=== PATIENT | female | born 1970 | race Caucasian/White ===

== ENCOUNTER 2016-11-11 14:37 | Emergency (ER) | payer BC ==
[2016-11-11 14:48] VITALS: BP 128/63
--- NOTE | 2016-11-11 15:15 | UC ---
Throat Pain/Nasal Isauro HPI - HPI Summary HPI Summary: 46 yo female with cough/nasal d/c, postnasal drip x 1 month now with dizziness no f/c - History of Current Complaint Chief Complaint: UCGeneralIllness Stated Complaint: DIZZY/LIGHT HEADED Time Seen by Provider: 11/11/16 15:04 Hx Obtained From: Patient Hx Last Menstrual Period: 10/14/16 Onset/Duration: Gradual Onset Severity: Mild Pain Intensity: 4 Pain Scale Used: 0-10 Numeric Associated Signs & Symptoms: Positive: Hoarseness, Sinus Discomfort, Nasal Discharge - Allergies/Home Medications Allergies/Adverse Reactions: Allergies Allergy/AdvReac Type Severity Reaction Status Date / Time No Known Allergies Allergy Verified 11/11/16 14:48 Home Medications: Home Medications Phenylephrine-Chlorpheniramine [[place] Plus Cold & 5-2-10-325 mg] 1 cap PO DAILY 11/11/16 [History Confirmed 11/11/16] PMH/Surg Hx/FS Hx/Imm Hx Previously Healthy: Yes Endocrine History Of: Denies: Diabetes, Thyroid Disease Cardiovascular History Of: Denies: Cardiac Disorders, Hypertension Respiratory History Of: Denies: COPD, Asthma GI/ History Of: Denies: Ulcer Psychological History Of: Reports: Anxiety - HX OF IN THE PAST, Depression - HX OF IN THE PAST Cancer History Of: Denies: Breast Cancer - Surgical History Surgical History: Yes Surgery Procedure, Year, and Place: tympanoplasty LEFT. hip replacement left- 2009. LEFT KNEE [id number] 2- PLATES AND SCREWS - Family History Known Family History: Positive: Cardiac Disease, Hypertension Negative: Diabetes - Social History Alcohol Use: None Substance Use Type: None Substance Use Comment - Amount & Last Used: HX OF USE 6 YEARS AGO Smoking Status (MU): Current Every Day Smoker Type: Cigarettes Amount Used/How Often: 1/2ppd X 30 YEARS Have You Smoked in the Last Year: Yes Household Exposure Type: Cigarettes - Immunization History Most Recent Influenza Vaccination: 02014 Review of Systems Constitutional: Negative Skin: Negative Eyes: Negative ENT: Nasal Discharge Respiratory: Cough Cardiovascular: Negative Gastrointestinal: Negative Genitourinary: Negative Motor: Negative Neurovascular: Negative Musculoskeletal: Negative Neurological: Negative Psychological: Negative All Other Systems Reviewed And Are Negative: Yes Physical Exam Triage Information Reviewed: Yes Appearance: Well-Appearing, No Pain Distress, Well-Nourished Vital Signs: Initial Vital Signs Temp 99.5 F 11/11/16 14:46 Pulse 92 11/11/16 14:46 Resp 16 11/11/16 14:46 BP 128/63 11/11/16 14:46 Pulse Ox 99 11/11/16 14:46 Eyes: Positive: Conjunctiva Clear ENT: Positive: Hearing grossly normal, Pharynx normal, Nasal congestion, Nasal drainage, TMs normal, Other: - bilateral max sinus tenderness. Negative: Pharyngeal erythema, Tonsillar swelling, Tonsillar exudate Neck: Positive: Supple, Nontender, No Lymphadenopathy Respiratory: Positive: Lungs clear, Normal breath sounds, No respiratory distress Cardiovascular: Positive: RRR, No Murmur Musculoskeletal: Positive: ROM Intact Neurological: Positive: Alert, Muscle Tone Normal. Negative: Fatigued Psychological Exam: Normal Skin Exam: Normal Throat Pain/Nasal Course/Dx - Differential Dx/Diagnosis Provider Diagnoses: acute sinusitis. dizziness Discharge - Discharge Plan Condition: Stable Disposition: HOME Prescriptions: Cefuroxime Axetil [Ceftin 250 MG] 250 mg PO BID #20 tab Patient Education Materials: Sinusitis (ED) Forms: *Work Release Referrals: Radha Burns MD [Primary Care Provider] - 1 Week (if not better) Additional Instructions: warm facial compresses saline nasal spray twice daily rest
== END 2016-11-11 15:16 | disposition home or self-care (01) ==
LOC: UCCORT 14:37
DX: J01.90 Acute sinusitis, unspecified (principal); R42 Dizziness and giddiness; Z96.642 Presence of left artificial hip joint; F17.210 Nicotine dependence, cigarettes, uncomplicated
CPT/HCPCS: 99212; G0463

== ENCOUNTER 2016-12-08 14:54 | Emergency (ER) | payer BC ==
[2016-12-08 15:33] VITALS: BP 112/65
--- NOTE | 2016-12-08 16:42 | UC ---
Ear Complaint HPI - HPI Summary HPI Summary: 46 yo female with left otalgia and otorrhea x days using ciprodex hx chronic left TM perf now with swollen glands - History of Current Complaint Chief Complaint: UCEar Stated Complaint: LEFT EAR PAIN Hx Obtained From: Patient Hx Last Menstrual Period: 11/11/16 Onset/Duration: Gradual Onset, Lasting Hours Severity Initially: Mild Severity Currently: Moderate Pain Intensity: 3 Pain Scale Used: 0-10 Numeric Aggravating Factors: Nothing Alleviating Factors: Nothing Associated Signs/Symptoms: Positive: Discharge, Hearing Loss, Swelling @ - glands Related History: Prior ENT Surgery - Allergies/Home Medications Allergies/Adverse Reactions: Allergies Allergy/AdvReac Type Severity Reaction Status Date / Time No Known Allergies Allergy Verified 11/11/16 14:48 PMH/Surg Hx/FS Hx/Imm Hx Previously Healthy: Yes Endocrine History Of: Denies: Diabetes, Thyroid Disease Cardiovascular History Of: Denies: Cardiac Disorders, Hypertension Respiratory History Of: Denies: COPD, Asthma GI/ History Of: Denies: Ulcer Psychological History Of: Reports: Anxiety - HX OF IN THE PAST, Depression - HX OF IN THE PAST Cancer History Of: Denies: Breast Cancer - Surgical History Surgical History: Yes Surgery Procedure, Year, and Place: tympanoplasty LEFT. hip replacement left- 2009. LEFT KNEE [id number] 2- PLATES AND SCREWS - Family History Known Family History: Positive: Cardiac Disease, Hypertension Negative: Diabetes - Social History Alcohol Use: None Substance Use Type: None Substance Use Comment - Amount & Last Used: HX OF USE 6 YEARS AGO Smoking Status (MU): Current Every Day Smoker Type: Cigarettes Amount Used/How Often: 1/2ppd X 30 YEARS Have You Smoked in the Last Year: Yes Household Exposure Type: Cigarettes - Immunization History Most Recent Influenza Vaccination: 02014 Review of Systems Constitutional: Negative Skin: Negative Eyes: Negative ENT: Ear Ache Respiratory: Negative Cardiovascular: Negative Gastrointestinal: Negative Genitourinary: Negative Motor: Negative Neurovascular: Negative Musculoskeletal: Negative Neurological: Negative Psychological: Negative All Other Systems Reviewed And Are Negative: Yes Physical Exam Triage Information Reviewed: Yes Appearance: Well-Appearing, No Pain Distress, Well-Nourished Vital Signs: Initial Vital Signs Temp 98.7 F 12/08/16 15:27 Pulse 81 12/08/16 15:27 Resp 16 12/08/16 15:27 BP 112/65 12/08/16 15:27 Pulse Ox 98 12/08/16 15:27 Vital Signs Reviewed: Yes Eyes: Positive: Conjunctiva Clear ENT: Negative: Normal ENT inspection, Hearing grossly normal, Nasal congestion, Nasal drainage, TMs normal - left tm red/purulent material in left EAC, left tragal tenderness, left post auricular and ant cerival nodes, Tonsillar swelling, Tonsillar exudate, Trismus, Muffled/hoarse voice Dental Exam: Normal Neck exam: Normal Respiratory: Positive: Chest non-tender, Lungs clear, Normal breath sounds Cardiovascular: Positive: RRR, No Murmur Bowel Sounds: Positive: Present Musculoskeletal: Positive: Strength Intact, ROM Intact, No Edema Neurological: Positive: Alert Psychological Exam: Normal Skin Exam: Normal Ear Complaint Course/Dx - Differential Dx/Diagnosis Provider Diagnoses: left otitis media. left otitis externa. chronic left TM perforation Discharge - Discharge Plan Condition: Stable Disposition: HOME Prescriptions: Amoxicillin/Clavulanate TAB* [Augmentin TAB 875*] 875 mg PO BID #14 tab Patient Education Materials: Otitis Externa (ED), Otitis Media (ED) Referrals: Radha Burns MD [Primary Care Provider] - Additional Instructions: recheck in 3-4 days if not better
== END 2016-12-08 16:36 | disposition home or self-care (01) ==
LOC: UCCORT 14:54
DX: H66.92 Otitis media, unspecified, left ear (principal); H72.92 Unspecified perforation of tympanic membrane, left ear; H60.92 Unspecified otitis externa, left ear; F41.8 Other specified anxiety disorders; Z96.642 Presence of left artificial hip joint; F17.210 Nicotine dependence, cigarettes, uncomplicated
CPT/HCPCS: 99212; G0463

== ENCOUNTER 2017-05-27 15:09 | Emergency (ER) | payer BC ==
[2017-05-27 15:18] VITALS: BP 150/87
--- NOTE | 2017-05-27 15:20 | UC ---
Dizzy HPI HPI Summary: 47 year old female presents with complains of dizziness and chest pain. - History Of Current Complaint Chief Complaint: UCDizziness Stated Complaint: DIZZINESS Time Seen by Provider: 05/27/17 15:19 Hx Obtained From: Patient Hx Last Menstrual Period: 11/11/16 Onset/Duration: Sudden Onset Severity Initially: Moderate Severity Currently: Moderate - Allergies/Home Medications Allergies/Adverse Reactions: Allergies Allergy/AdvReac Type Severity Reaction Status Date / Time No Known Allergies Allergy Verified 05/27/17 15:18 PMH/Surg Hx/FS Hx/Imm Hx - Surgical History Surgical History: Yes Surgery Procedure, Year, and Place: tympanoplasty LEFT. hip replacement left- 2009. LEFT KNEE [id number] 2- PLATES AND SCREWS - Family History Known Family History: Positive: Cardiac Disease, Hypertension Negative: Diabetes - Social History Alcohol Use: None Substance Use Type: None Substance Use Comment - Amount & Last Used: HX OF USE 6 YEARS AGO Smoking Status (MU): Current Every Day Smoker Type: Cigarettes Amount Used/How Often: 1/2ppd X 30 YEARS Have You Smoked in the Last Year: Yes Household Exposure Type: Cigarettes - Immunization History Most Recent Influenza Vaccination: 02014 Review of Systems Constitutional: Negative Skin: Negative Eyes: Negative ENT: Negative Respiratory: Negative Cardiovascular: Palpitations, Chest Pain Gastrointestinal: Negative Genitourinary: Negative Motor: Negative Neurovascular: Negative Musculoskeletal: Negative Neurological: Headache, Weakness Psychological: Negative All Other Systems Reviewed And Are Negative: Yes Physical Exam Triage Information Reviewed: Yes Vital Signs: Initial Vital Signs Temp 37.4 C 05/27/17 15:16 Pulse 104 05/27/17 15:16 Resp 18 05/27/17 15:16 BP 150/87 05/27/17 15:16 Pulse Ox 100 05/27/17 15:16 Eye Exam: Normal ENT Exam: Normal Dental Exam: Normal Neck exam: Normal Neck: Positive: 1 Respiratory Exam: Normal Cardiovascular Exam: Normal Abdominal Exam: Normal Musculoskeletal Exam: Normal Neurological Exam: Normal Psychological Exam: Normal Skin Exam: Normal Dizzy Course/Dx - Differential Dx/Diagnosis Provider Diagnoses: chest pain. dizziness Discharge - Discharge Plan Condition: Guarded Disposition: AGAINST MEDICAL ADVICE Patient Education Materials: Chest Pain (ED), Dizziness (ED) Referrals: Radha Burns MD [Primary Care Provider] -
== END 2017-05-27 15:31 | disposition left against medical advice (07) ==
LOC: UCCORT 15:09
DX: R42 Dizziness and giddiness (principal); F17.210 Nicotine dependence, cigarettes, uncomplicated; R07.9 Chest pain, unspecified
CPT/HCPCS: 93005; 99212; G0463

== ENCOUNTER 2018-05-19 11:08 | Emergency (ER) | payer BC ==
[2018-05-19 11:48] VITALS: BP 123/70
[2018-05-19] MEDS ORDERED: Amoxicillin PO (*) 500 MG CAP PO ONE (12:35)
--- NOTE | 2018-05-19 13:09 | UC ---
Throat Pain/Nasal Isauro HPI - HPI Summary HPI Summary: Patient presents with 10-12 days of head congestion postnasal drip sinus pressure. Patient states she's had increasing pressure left ear. Patient states she has had recurrent problems with infections in her ear as well as perforations and surgeries to her eardrum. Patient states yesterday she 0 with some drainage from her left ear. Patient denies fevers. Patient has used over- the-counter decongestants and cough medicine with little relief. Patient denies rash. No chest pain or shortness of breath. Patient does have a cough productive yellow sputum. No nausea or vomiting. Patient with multiple sick contacts at her job. Patient does smoke cigarettes. Medications medications reviewed this visit - History of Current Complaint Chief Complaint: Yfn Stated Complaint: LEFT EAR PAIN Time Seen by Provider: 05/19/18 12:27 Hx Obtained From: Patient Hx Last Menstrual Period: spotty ?: No Onset/Duration: Gradual Onset Pain Intensity: 0 Pain Scale Used: 0-10 Numeric - Allergies/Home Medications Allergies/Adverse Reactions: Allergies Allergy/AdvReac Type Severity Reaction Status Date / Time No Known Allergies Allergy Verified 05/19/18 11:52 Home Medications: Home Medications Atorvastatin* [Lipitor*] 40 mg PO 1700 05/19/18 [History Confirmed 05/19/18] Cetirizine HCl [Zyrtec] 10 mg PO DAILY WITH MEAL 05/19/18 [History Confirmed 07/25] Duloxetine HCl [Cymbalta] 20 mg PO DAILY WITH MEAL 05/19/18 [History Confirmed 05/19/18] Pantoprazole TAB (NF) [Protonix TAB (NF)] 20 mg PO DAILY 05/19/18 [History Confirmed 05/19/18] guaiFENesin [Mucinex] 1,200 mg PO DAILY WITH MEAL 05/19/18 [History Confirmed ] PMH/Surg Hx/FS Hx/Imm Hx Previously Healthy: Yes - Surgical History Surgical History: Yes Surgery Procedure, Year, and Place: tympanoplasty LEFT. hip replacement left- 2009. LEFT KNEE [id number] 2- PLATES AND SCREWS - Family History Known Family History: Positive: Cardiac Disease, Hypertension Negative: Diabetes - Social History Occupation: Employed Full-time Alcohol Use: recovery Substance Use Type: None Substance Use Comment - Amount & Last Used: HX OF USE 6 YEARS AGO Smoking Status (MU): Current Every Day Smoker Type: Cigarettes Amount Used/How Often: 1/2ppd X 30 YEARS Have You Smoked in the Last Year: Yes Household Exposure Type: Cigarettes - Immunization History Most Recent Influenza Vaccination: 02014 Review of Systems Constitutional: Fatigue ENT: Ear Ache, Nasal Discharge, Sinus Congestion, Sinus Pain/Tenderness Respiratory: Cough All Other Systems Reviewed And Are Negative: Yes Physical Exam - Summary Physical Exam Summary: Vital Signs Reviewed: Yes A+Ox3, no distress Eyes: Conjunctiva Clear, EDUIN. EOM intact and full ENT: Hearing grossly normal scant fluid right TM left TM with fluid noted at ear drum + erythema turbinates inflammed and boggy mmoist no exudate, uvula midline Neck: Positive: Supple no LA Respiratory: Positive: No respiratory distress, No accessory muscle use coarse cough, few scattered wheeze no rhonci Cardiovascular: RRR nl s1, s2 no m/r CBT <2 sec abd soft + BS nt/nd no guarding, no distension Musculoskeletal Exam: WALSH x 4 without difficulty Strength Intact, ROM Intact Neurological: Positive: Alert, + sensation throughout Psychological: Positive: Normal Response To Family Skin: Positive: no rash, no ecchymosis Triage Information Reviewed: Yes Vital Signs: Initial Vital Signs Temp 98.1 F 05/19/18 11:44 Pulse 79 05/19/18 11:44 Resp 18 05/19/18 11:44 BP 123/70 05/19/18 11:44 Pulse Ox 100 05/19/18 11:44 Throat Pain/Nasal Course/Dx - Course Course Of Treatment: Patient presents with 2 weeks of progressive head congestion postnasal drip cough. Patient now with drainage from her left ear. Patient's with a history of similar the past. Patient has been taking over-the- counter medications without relief. On exam patient with turbinates inflamed postnasal drip and fluid on either side of her left TM. Spoke to patient's pharmacy as Dr. Faith as previously prescribed Cipro ophthalmic drops for her left ear. Will renew the same prescription. Additionally we'll prescribe him amoxicillin as well as Nasonex. Discussed with patient secretion precaution. Decrease smoking. Motrin Tylenol as needed. Return precautions. Patient comfortable in agreement with plan. - Differential Dx/Diagnosis Provider Diagnoses: left otitis media. rhinosinusitis Discharge - Sign-Out/Discharge Documenting (check all that apply): Patient Departure All imaging exams completed and their final reports reviewed: No Studies - Discharge Plan Condition: Stable Disposition: HOME Prescriptions: Amoxicillin PO (*) [Amoxicillin 500 MG CAP*] 500 mg PO Q12H #14 cap Ciprofloxacin 0.3% OPTH.VERENA* [Cipro 0.3% Opth*] 2 drop LEFT EAR BID #1 btl Mometasone Furoate [Nasonex] 50 mcg NA DAILY #1 spr Patient Education Materials: Ear Infection (ED), Rhinosinusitis (DC) Referrals: Radha Burns MD [Primary Care Provider] - Additional Instructions: - Stay well hydrated. Drink plenty of non-alcoholic, non-caffinated beverages. - Alternate ibuprofen (Advil, Motrin) 600mg and Tylenol every 3 hours for pain or fever. Take with food. Do NOT take for more than 4-5 days. - These infections are spread by secretions - do NOT share eating or drinking utensils - clean items you share with other people such as cell phones, computer mouse, TV remote, computer tablets,etc. Once you have been antibiotics for 2 days, change your toothbrush and your pillowcase. - get plenty of restful sleep - humidify the air in the room where you sleep - boil water, run a hot steam shower, vaporizer, cups of water by heat register - okay to take over the counter decongestant and cough medication - use nasal spray as prescribed - use ear drops as prescribed - work to decrease cigarette smoke - contact your doctor or return with questions or concerns - Billing Disposition and Condition Condition: STABLE Disposition: Home
== END 2018-05-19 12:45 | disposition home or self-care (01) ==
LOC: UCCORT 11:08
DX: H66.92 Otitis media, unspecified, left ear (principal); J32.9 Chronic sinusitis, unspecified; F17.210 Nicotine dependence, cigarettes, uncomplicated
CPT/HCPCS: 99212; A9270-GY; G0463

== ENCOUNTER 2018-10-01 20:09 | Emergency (ER) | payer BC ==
[2018-10-01 20:31] VITALS: BP 128/67
[2018-10-01 20:38] LABS: Influenza A Molecular POSITIVE (Negative)
--- NOTE | 2018-10-01 20:41 | UC ---
FLU HPI - HPI Summary HPI Summary: 48-year-old female presents with 2 day history of fatigue, general malaise, body aches, mild nasal congestion, mild sore throat, and a dry nonproductive cough. Denies ear pain, dysphagia, chest pain, shortness of breath, abdominal pain, nausea, vomiting, or diarrhea. She did receive her flu shot this year. - History of Current Complaint Chief Complaint: UCRespiratory Stated Complaint: FLU SXS Time Seen by Provider: 10/01/18 20:24 Hx Obtained From: Patient Hx Last Menstrual Period: spotty Pain Intensity: 2 - Allergy/Home Medications Allergies/Adverse Reactions: Allergies Allergy/AdvReac Type Severity Reaction Status Date / Time No Known Allergies Allergy Verified 10/01/18 20:25 PMH/Surg Hx/FS Hx/Imm Hx Previously Healthy: Yes Endocrine History: Dyslipidemia GI/ History: Gastroesophageal Reflux - Surgical History Surgical History: Yes Surgery Procedure, Year, and Place: tympanoplasty LEFT. hip replacement left- 2009. LEFT KNEE [id number] 2- PLATES AND SCREWS - Family History Known Family History: Positive: Cardiac Disease, Hypertension - Social History Occupation: Employed Full-time Lives: With Family Alcohol Use: None Substance Use Type: None Substance Use Comment - Amount & Last Used: HX OF USE 6 YEARS AGO Smoking Status (MU): Current Every Day Smoker Type: Cigarettes Amount Used/How Often: 1/2ppd X 30 YEARS Have You Smoked in the Last Year: Yes Household Exposure Type: Cigarettes - Immunization History Most Recent Influenza Vaccination: 0CT 2014 Review of Systems All Other Systems Reviewed And Are Negative: Yes Constitutional: Positive: Chills, Fatigue Skin: Negative: Rash Eyes: Negative: Drainage, Eye Redness ENT: Positive: Sore Throat, Nasal Discharge, Sinus Congestion. Negative: Ear Ache, Sinus Pain/Tenderness Respiratory: Positive: Cough. Negative: Shortness Of Breath Cardiovascular: Negative: Palpitations, Chest Pain Gastrointestinal: Negative: Abdominal Pain, Vomiting, Diarrhea, Nausea Genitourinary: Positive: Negative Musculoskeletal: Positive: Negative Neurological: Positive: Negative Is Patient Immunocompromised?: No Physical Exam - Summary Physical Exam Summary: GENERAL APPEARANCE: Well developed, well nourished, alert and cooperative, and appears to be in no acute distress. EYES: Conjunctiva clear. No drainage. Vision is grossly intact. EARS: External auditory canals and tympanic membranes clear, hearing grossly intact. NOSE: Mild nasal congestion. No nasal discharge. THROAT: Mild pharyngeal erythema. No tonsilar inflammation, swelling, exudate, or lesions. Uvula midline. Oral cavity normal. Teeth and gingiva in good general condition. NECK: Neck supple, non-tender without lymphadenopathy. CARDIAC: Normal S1 and S2. No S3, S4 or murmurs. Rhythm is regular. There is no peripheral edema, cyanosis or pallor. Extremities are warm and well perfused. Capillary refill is less than 2 seconds. Peripheral pulses intact. LUNGS: Clear to auscultation without rales, rhonchi, wheezing or diminished breath sounds. Dry, non-productive cough. ABDOMEN: Positive bowel sounds. Soft, nondistended, nontender. No guarding or rebound. No masses or hepatosplenomegally. MUSKULOSKELETAL: ROM intact to all extremities. No joint erythema or tenderness. Normal muscular development. Normal gait. SKIN: Skin normal color, texture and turgor with no lesions or eruptions. Triage Information Reviewed: Yes Vital Signs: Initial Vital Signs Temp 98.4 F 10/01/18 20:26 Pulse 84 10/01/18 20:26 Resp 16 10/01/18 20:26 BP 128/67 10/01/18 20: Pulse Ox 99 10/01/18 20:26 Vital Signs Reviewed: Yes Diagnostics - Laboratory Diagnostic Studies Completed/Ordered: Rapid flu positive for influenza A Flu Course/Dx - Course Course Of Treatment: 48-year-old female presents with 2 day history of fatigue, general malaise, body aches, mild nasal congestion, mild sore throat, and a dry nonproductive cough. Denies ear pain, dysphagia, chest pain, shortness of breath, abdominal pain, nausea, vomiting, or diarrhea. She did receive her flu shot this year. Afebrile. Vital signs stable. Exam reveals an old female in no acute distress with mild nasal congestion, and mild pharyngeal erythema without tonsillar swelling or exudate, no cervical lymphadenopathy, clear bilateral breath sounds, dry nonproductive cough, and otherwise unremarkable exam. Rapid flu positive for influenza A. Discuss risks and benefits of starting Tamiflu and she is electing to start at this time. Recommending symptomatic treatment for influenza including Tessalon Perles one capsule every 8 hours as needed for cough. She is to follow-up with her primary care provider in 7 days if symptoms do not improve. Discharged guidance and warning symptoms were reviewed with the patient. Verbalizes understanding and agrees with plan of care. - Differential Dx/Diagnosis Differential Diagnosis/HQI/PQRI: Bronchitis, Influenza, Pneumonia, Upper Respiratory Infection Provider Diagnosis: Influenza A Discharge - Sign-Out/Discharge Documenting (check all that apply): Patient Departure All imaging exams completed and their final reports reviewed: No Studies - Discharge Plan Condition: Stable Disposition: HOME Prescriptions: Benzonatate CAP* [Tessalon 100 MG CAP*] 100 mg PO TID PRN #30 cap PRN Reason: Cough Oseltamivir CAP* [Tamiflu CAP*] 75 mg PO BID #9 cap Patient Education Materials: Influenza (ED) Forms: *Work Release Referrals: Radha Burns MD [Primary Care Provider] - 7 Days (If no improvement in symptoms ) Additional Instructions: Your flu test in the clinic today was positive for influenza A. Start Tamiflu 1 capsule twice a day for 5 days. Get plenty of rest. Drink plenty of fluids to avoid dehydration especially if you are running any fever. Take over the counter acetaminophen (Tylenol) or ibuprofen (Advil, Motrin) according to directions as needed for pain or fever. Take Tessalon Perles 1 cap every 8 hours as needed for cough. Use salt water gargles several times a day if you have a sore throat. You may also use Chloraseptic spray or Cepacol lonzenges according to directions which contain a numbing medication and can provide some temporary relief from your sore throat. Follow up with your primary care provider in 7 days if symptoms persist. Seek immediate medical attention in the emergency room if you have fever greater than 100.5 F despite taking acetaminophen or ibuprofen, have chest pain , difficulty breathing, are unable to swallow, or have any worsening of symptoms. - Billing Disposition and Condition Condition: STABLE Disposition: Home
[2018-10-01] MEDS ORDERED: Oseltamivir CAP* 75 MG CAP PO ONE (20:46)
== END 2018-10-01 21:00 | disposition home or self-care (01) ==
LOC: UCCORT 20:09
DX: J10.1 Influenza due to other identified influenza virus with other respiratory manifestations (principal); F17.210 Nicotine dependence, cigarettes, uncomplicated
CPT/HCPCS: 99212; A9270-GY; G0463

== ENCOUNTER 2019-09-09 13:57 | Emergency (ER) | payer BC ==
[2019-09-09 16:08] VITALS: BP 116/69
--- NOTE | 2019-09-09 16:24 | UC ---
FLU HPI - HPI Summary HPI Summary: Body aches, sore throat, diarrhea yesterday. This morning felt like she had been hit be a truck. Deep cough this morning and some lightheadedness. 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 - History of Current Complaint Chief Complaint: UCGeneralIllness Stated Complaint: FLU LIKE ILLNESS Time Seen by Provider: 09/09/19 16:13 Hx Obtained From: Patient Hx Last Menstrual Period: spotty Pain Intensity: 4 Pain Scale Used: 0-10 Numeric Associated Signs & Symptoms: Positive: Sore Throat, Diarrhea - Allergy/Home Medications Allergies/Adverse Reactions: Allergies Allergy/AdvReac Type Severity Reaction Status Date / Time No Known Allergies Allergy Verified 09/09/19 16:09 Home Medications: Home Medications Guaifenesin/Dextromethorphan [Mucinex Dm Maximum Streng 60-1200 mg] 1 tab PO ONCE PRN 09/09/19 [History Confirmed 09/09/19] Ibuprofen TAB* [Motrin TAB* 800 MG] 800 mg PO Q6H 09/09/19 [History Confirmed ] Mometasone Furoate [Nasonex] 50 mcg NA DAILY PRN 09/09/19 [History Confirmed 09/27] PMH/Surg Hx/FS Hx/Imm Hx Previously Healthy: Yes Cardiovascular History: Cardiac Disease GI/ History: Gastroesophageal Reflux - Surgical History Surgical History: Yes Surgery Procedure, Year, and Place: tympanoplasty LEFT. hip replacement left- 2009. LEFT KNEE [id number]- PLATES AND SCREWS - Family History Known Family History: Positive: Cardiac Disease, Hypertension - Social History Alcohol Use: None Substance Use Type: None Substance Use Comment - Amount & Last Used: HX OF USE 6 YEARS AGO Smoking Status (MU): Current Every Day Smoker Type: Cigarettes Amount Used/How Often: 1/2ppd X 30 YEARS Have You Smoked in the Last Year: Yes Household Exposure Type: Cigarettes - Immunization History Most Recent Influenza Vaccination: 2014 Review of Systems All Other Systems Reviewed And Are Negative: Yes Constitutional: Negative: Fever, Chills, Fatigue Skin: Negative: Rash ENT: Positive: Sore Throat Gastrointestinal: Positive: Diarrhea Neurological: Positive: Weakness. Negative: Headache Physical Exam Triage Information Reviewed: Yes Appearance: Well-Appearing Vital Signs: Initial Vital Signs Temp 99.2 F 09/09/19 16:04 Pulse 101 09/09/19 16:04 Resp 18 09/09/19 16:04 BP 116/69 09/09/19 16:04 Pulse Ox 100 09/09/19 16:04 Vital Signs Reviewed: Yes ENT: Positive: Pharynx normal, TMs normal, Uvula midline Neck: Positive: Supple Respiratory Exam: Normal Cardiovascular Exam: Normal Neurological: Positive: Alert Skin: Negative: Rashes Flu Course/Dx - Course Course Of Treatment: cough and sore throat w/ muscle aches. no resp.distress, vitals good. rapid flu neg. disc ways to manage viral syndrome will treat symptoms of cough and sore throat. - Differential Dx/Diagnosis Differential Diagnosis/HQI/PQRI: Broncholiolitis, Influenza, RSV, Upper Respiratory Infection Provider Diagnosis: URI (upper respiratory infection) Discharge ED - Sign-Out/Discharge Documenting (check all that apply): Patient Departure All imaging exams completed and their final reports reviewed: No Studies - Discharge Plan Condition: Good Disposition: HOME Prescriptions: Benzonatate CAP* [Tessalon 100 MG CAP*] 100 mg PO TID PRN 5 Days #15 cap PRN Reason: Cough Dextromethorphan/Benzocaine [Cepacol Sorethroat-Cough Dick] 1 each PO Q4HR PRN # 30 lozenge PRN Reason: Sore Throat Patient Education Materials: Pharyngitis (ED) Forms: *Work Release Referrals: Radha Burns MD [Primary Care Provider] - Additional Instructions: If worsening please see your primary care provider. - Billing Disposition and Condition Condition: GOOD Disposition: Home
[2019-09-09 16:31] LABS: Influenza A Molecular Negative (Negative); Influenza B Molecular Negative (Negative)
== END 2019-09-09 16:42 | disposition home or self-care (01) ==
LOC: UCCORT 13:57
DX: J06.9 Acute upper respiratory infection, unspecified (principal); R19.7 Diarrhea, unspecified; F17.210 Nicotine dependence, cigarettes, uncomplicated
CPT/HCPCS: 99212; G0463